=== PATIENT | female | born 1935 | race Caucasian/White ===

== ENCOUNTER 2016-06-05 08:08 | Inpatient (IN) ==
[2016-06-05] MEDS ORDERED: *HR* Dextrose 50 % in Water (Syg) 50 ML SYRINGE IVP PRN (13:30)
[2016-06-05] MEDS ORDERED: Dextrose Gel 15 GM PO PRN ×2 (13:30)
[2016-06-05] MEDS ORDERED: D5% in Water 1,000 ML IVC PRN (13:30)
[2016-06-05] MEDS ORDERED: NON-FORMULARY MEDICATION 1 EACH EACH (Insulin Glargine [Lantus] 20 UNITS) SQ SCH (16:30)
[2016-06-05] MEDS: Insulin LISPRO 300 UNITS/3 ML VIAL SQ SCH ×2 (16:53→20:42)
[2016-06-05] MEDS: *HR* Warfarin 2.5 MG TABLET PO SCH (16:59)
[2016-06-05] MEDS: Insulin DETEMIR 100 UNIT/ML X5UNITS SQ SCH (17:00)
[2016-06-06 05:50] LABS: Basophils % 0.4 %; Eosinophils # 0.1 K/mcL (0.0-0.6); Eosinophils % 1.9 %; Hematocrit 32.1 % (35.3-44.9); Hemoglobin 10.8 g/dL (11.5-15.4); INR 2.4; Immature Granulocytes % 0.4 % (0-4); Lymphocytes # 1.4 K/mcL (0.6-4.6); Lymphocytes % 26.7 %; Mean Corpuscular HGB Conc 33.6 g/dL (31.6-35.5); Mean Corpuscular Hemoglobin 28.3 pg (28.0-33.3); Mean Platelet Volume 9.9 fL (9.4-12.4); Monocytes # 0.7 K/mcL (0.0-1.3); Monocytes % 13.2 %; Neutrophils # 3.1 K/mcL (1.6-8.9); Platelet Count 328 K/mcL (140-400); Prothrombin Time 26.3 Seconds (9.4-12.1); Red Blood Count 3.82 M/mcL (3.82-4.97); Red Cell Distribution Width 13.8 % (11.5-14.5); Segmented Neutrophils % 57.4 %
[2016-06-06 05:53] LABS: Activated Partial Thrombo Time 29.8 Seconds (26.0-36.0)
[2016-06-06 06:01] LABS: BUN/Creatinine Ratio 23 (6-26); Blood Urea Nitrogen 18 mg/dL (7-20); Calcium 8.9 mg/dL (8.6-10.8); Carbon Dioxide 21 mEq/L (19-29); Chloride 107 mEq/L (98-109); Osmolality,Calculated 283 (280-300); Potassium 3.7 mEq/L (3.5-4.5); Sodium 137 mEq/L (136-145); eGFR For African Americans > 60 (> 60); eGFR For Non-African Americans > 60 (> 60)
[2016-06-06 06:05] LABS: Glucose 38 mg/dL (70-99)
[2016-06-06] MEDS: Insulin LISPRO 300 UNITS/3 ML VIAL SQ SCH ×4 (08:00→20:50)
[2016-06-06] MEDS: *HR* GlipiZIDE XL (24 HR) 10 MG TABLET PO SCH (10:11)
[2016-06-06] MEDS: Aspirin Enteric Coated 325 MG Tablet PO SCH (10:11)
[2016-06-06] MEDS: *HR* Warfarin 2.5 MG TABLET PO SCH (17:42)
[2016-06-06] MEDS: Insulin DETEMIR 100 UNIT/ML X5UNITS SQ SCH (17:48)
[2016-06-07 07:14] LABS: INR 2.2; Prothrombin Time 24.7 Seconds (9.4-12.1)
[2016-06-07] MEDS: Insulin LISPRO 300 UNITS/3 ML VIAL SQ SCH ×4 (08:20→20:30)
[2016-06-07] MEDS: *HR* GlipiZIDE XL (24 HR) 10 MG TABLET PO SCH (08:21)
[2016-06-07] MEDS: Aspirin Enteric Coated 325 MG Tablet PO SCH (08:21)
[2016-06-07] MEDS: Insulin DETEMIR 100 UNIT/ML X5UNITS SQ SCH (09:19)
--- NOTE | 2016-06-07 14:32 | Internal Med History&Physical ---
Date of Encounter: 06/07/16 Time of Encounter: 14:30 Assessment and Plan (1) CVA (cerebral vascular accident) Current visit: Yes Status: Acute CVA. Qualifiers: Laterality of affected vessel: unspecified Qualified Code(s): I63.019 - Cerebral infarction due to thrombosis of unspecified vertebral artery Internal Medicine - H&P: HPI Chief complaint: Patient had CVA Admitted From: Hospital to Hospital Transfer Plans for Post Hospital Care: Home History of present illness: Ms. Torres is a 81 year old female Patient is a somewhat confused 81-year-old female with an ischemic CVA. Past Med Surg Social Fam HX - Past Medical History Medical history: atrial fibrillation, CVA, diabetes, thyroid disease - Social History Smoking Status: Unknown if ever smoked - Family History Mother History Unknown: Yes Father History Unknown: Yes Internal Medicine - H&P: Meds Aspirin [Ecotrin] 325 mg PO DAILY 06/05/16 [History] Bisacodyl [Woman's Laxative] 5 mg PO DAILY 06/05/16 [History] Carvedilol [Coreg] 6.25 mg PO BIDWM 06/05/16 [History] GlipiZIDE [Glipizide] 10 mg PO DAILY 06/05/16 [History] Insulin Glargine [Lantus] 20 units SQ 1630 06/05/16 [History] Levothyroxine [Synthroid] 0.1 mg PO DAILY 06/05/16 [History] Pravastatin Sodium [Pravachol] 40 mg PO HS 06/05/16 [History] Warfarin [Coumadin] 2.5 mg PO DAILY 06/05/16 [History] Allergies pcn Allergy (Unknown, Uncoded 06/05/16 13:14) Rash All Systems PM: A 10-system review of systems was performed and is negative for pertinent findings except as documented above in the HPI. - Constitutional Vitals: Temp Pulse Resp BP Pulse Ox 98 F 76 18 167/62 94 06/07/16 08:04 06/07/16 08:04 06/07/16 08:04 06/07/16 08:04 06/07/16 08:04 - Head Head exam: Present: atraumatic, normal inspection, normocephalic - Neck Neck exam general surgery: Present: supple, trachea midline. Absent: lymphadenopathy - Respiratory Respiratory exam: Present: CTAB. Absent: accessory muscle use, rales, rhonchi, wheezes - Cardiovascular Cardiovascular exam: Present: RRR, +S1, +S2. Absent: diastolic murmur, gallop, rubs, systolic murmur - GI/Abdominal GI/Abdominal exam: Present: normal bowel sounds, soft, no peritoneal signs. Absent: distended, tenderness Internal Med - H&P Results - Labs CBC & Chem 7: 06/06/16 05:43 06/06/16 05:43 Labs: Blood sugar was noted and responded to by the nursing staff.
[2016-06-07] MEDS: *HR* Warfarin 2.5 MG TABLET PO SCH (17:40)
[2016-06-08 00:45] LABS: Bilirubin,Urine Negative (Negative); Blood,Urine Trace-intact (Negative); Clarity,Urine Clear (Clear); Color,Urine Yellow (Yellow); Glucose,Urine (UA) Normal (Normal); Ketones,Urine Negative (Negative); Leukocyte Esterase,Urine Negative (Negative); Nitrite,Urine Negative (Negative); PH,Urine 6.5 pH Units (5.0-8.0); Protein,Urine Negative (Neg-Trace); Urobilinogen,Urine Normal (Normal)
[2016-06-08 00:47] LABS: Amorphous Sediment,Urine Few (Few); RBC,Urine 0-3 per hpf (0-3)
[2016-06-08 05:33] LABS: INR 1.8; Prothrombin Time 20.2 Seconds (9.4-12.1)
[2016-06-08] MEDS: Insulin LISPRO 300 UNITS/3 ML VIAL SQ SCH ×4 (08:02→20:48)
[2016-06-08] MEDS: Aspirin Enteric Coated 325 MG Tablet PO SCH (09:31)
[2016-06-08] MEDS: Insulin DETEMIR 100 UNIT/ML X5UNITS SQ SCH (09:31)
[2016-06-08] MEDS: *HR* GlipiZIDE XL (24 HR) 10 MG TABLET PO SCH (09:31)
--- NOTE | 2016-06-08 15:41 | Internal Med Progress Note ---
Date of Encounter: 06/08/16 Time of Encounter: 15:39 - Assessment and plan (1) CVA (cerebral vascular accident) Current Visit: Yes Status: Acute Assessment and plan: She had a CVA of ischemic nature and is participating all levels of care with PT OT when necessary speech Qualifiers: Laterality of affected vessel: unspecified Qualified Code(s): I63.019 - Cerebral infarction due to thrombosis of unspecified vertebral artery - Time Spent With Patient less than 15 minutes - Subjective Interval history: Patient is doing well working with therapy. Resting and participating on all levels - Constitutional Vitals: Temp Pulse Resp BP Pulse Ox 98.8 F 88 18 85/60 99 06/08/16 07:00 06/08/16 07:00 06/08/16 07:00 06/08/16 07:00 06/08/16 07:00 - Head Head exam: Present: atraumatic, normal inspection, normocephalic - Respiratory Respiratory exam: Present: CTAB. Absent: accessory muscle use, rales, rhonchi, wheezes - Cardiovascular Cardiovascular exam: Present: RRR, +S1, +S2. Absent: diastolic murmur, gallop, rubs, systolic murmur Internal Medicine: Result - Labs CBC & Chem 7: 06/06/16 05:43 06/06/16 05:43 Labs: Urine 06/07/16 Range/Units 23:41 Urine Color Yellow (Yellow) Urine Clarity Clear (Clear) Urine pH 6.5 (5.0-8.0) pH Units Ur Specific [place] 1.010 (1.010-1.025) Urine Protein Negative (Neg-Trace) mg/dL Urine Glucose (UA) Normal (Normal) mg/dL Lab is stable - ABG Interpretation ABG results: PT/INR, D-dimer PT 20.2 Seconds (9.4-12.1) H 06/08/16 05:20 Consult Discharge Plan - Plan Referrals: NO,PCP [Primary Care Provider] -
[2016-06-08] MEDS: *HR* Warfarin 3 MG TABLET PO SCH (17:43)
[2016-06-09 05:23] LABS: INR 1.5; Prothrombin Time 16.6 Seconds (9.4-12.1)
[2016-06-09] MEDS: Insulin LISPRO 300 UNITS/3 ML VIAL SQ SCH ×3 (08:06→17:18)
[2016-06-09] MEDS: Aspirin Enteric Coated 325 MG Tablet PO SCH (09:19)
[2016-06-09] MEDS: *HR* GlipiZIDE XL (24 HR) 10 MG TABLET PO SCH (09:19)
--- NOTE | 2016-06-09 14:46 | Internal Med Progress Note ---
Date of Encounter: 06/09/16 Time of Encounter: 14:44 - Assessment and plan (1) CVA (cerebral vascular accident) Current Visit: Yes Status: Acute Assessment and plan: Patient had a CVA with think there are some cognitive changes. Qualifiers: Laterality of affected vessel: unspecified Qualified Code(s): I63.419 - Cerebral infarction due to embolism of unspecified middle cerebral artery - Time Spent With Patient less than 15 minutes - Subjective Interval history: Patient is doing well working with therapy. Resting and participating on all levels. The staff we discussed her progress and there are some cognitive issues. Physically and orally the patient is doing well. - Constitutional Vitals: Temp Pulse Resp BP Pulse Ox 98.2 F 81 18 129/67 97 06/09/16 07:06 06/09/16 07:06 06/09/16 07:06 06/09/16 07:06 06/09/16 07:06 - Head Head exam: Present: atraumatic, normal inspection, normocephalic - Neck Neck exam general surgery: Present: supple, trachea midline. Absent: lymphadenopathy - Respiratory Respiratory exam: Present: CTAB. Absent: accessory muscle use, rales, rhonchi, wheezes - Cardiovascular Cardiovascular exam: Present: RRR, +S1, +S2. Absent: diastolic murmur, gallop, rubs, systolic murmur Internal Medicine: Result - Labs CBC & Chem 7: 06/06/16 05:43 06/06/16 05:43 Labs: Her lab is stable - ABG Interpretation ABG results: PT/INR, D-dimer PT 16.6 Seconds (9.4-12.1) H 06/09/16 04:50 - VTE Documentation of Mechanical Device: Graduated compression elastic hosiery Consult Discharge Plan - Plan Referrals: NO,PCP [Primary Care Provider] -
[2016-06-09] MEDS: Insulin DETEMIR 100 UNIT/ML X5UNITS SQ SCH (15:36)
--- NOTE | 2016-06-09 15:54 | Physcial Medicine-Consult Note ---
Date of Encounter: 06/09/16 Time of Encounter: 15:50 Physical Medicine - AP (1) CVA (cerebral vascular accident) Status: Acute Assessment and plan: 1. Patient will continue with intensive PT/OT/ST/TR. Patient is currently SBA for gait, she ambulates quickly. Requires cues to scan environment. Her endurance is poor. Her cognitive deficits are her primary barrier. We will continue to focus on safety, cognition and ADLs. EOL 4 weeks. Code(s): I63.9 - Cerebral infarction, unspecified SNOMED Code(s): 114958298 Physical Medicine - HPI - Data of Consult Consult date: 06/09/16 Requesting Physician: Luiz Lomeli DO Primary Care Provider: PCP NO - Consult Narrative Reason for consult: CVA History of present illness: Ms. Torres is a 81 year old female with a past medical history significant for afib, diabetes, hypertension, and congestive heart failure, who presented to [facility] with complaints of mental status changes, dysarthria , expressive aphasia and right sided weakness. MRI of brain revealed an acute infarct in the left posterior frontal/parietal lobe, previous infarcts in the right parietal/occipital and left occipital lobes. Patient was stabilized and transferred for inpatient rehabilitation. CC: Luiz Lomeli DO Past Med Surg Social Fam HX - Past Medical History Medical history: atrial fibrillation, CVA, diabetes, thyroid disease - Social History Smoking Status: Unknown if ever smoked - Family History Mother History Unknown: Yes Father History Unknown: Yes Medications and Allergies Aspirin [Ecotrin] 325 mg PO DAILY 06/05/16 [History] Bisacodyl [Woman's Laxative] 5 mg PO DAILY 06/05/16 [History] Carvedilol [Coreg] 6.25 mg PO BIDWM 06/05/16 [History] GlipiZIDE [Glipizide] 10 mg PO DAILY 06/05/16 [History] Insulin Glargine [Lantus] 20 units SQ 1630 06/05/16 [History] Levothyroxine [Synthroid] 0.1 mg PO DAILY 06/05/16 [History] Pravastatin Sodium [Pravachol] 40 mg PO HS 06/05/16 [History] Warfarin [Coumadin] 2.5 mg PO DAILY 06/05/16 [History] Allergies pcn Allergy (Unknown, Uncoded 06/05/16 13:14) Rash - Constitutional Constitutional: Absent: anorexia, chills - Cardiovascular Cardiovascular: Absent: chest pain, dyspnea - Respiratory Respiratory: Absent: dyspnea - Genitourinary Genitourinary: Absent: urinary incontinence - Neurological Neurological: Present: memory loss - Psychiatric Psychiatric: Present: confusion. Absent: auditory hallucinations, visual hallucinations Physical Medicine - Exam - Constitutional Vitals: Temp Pulse Resp BP Pulse Ox 98.2 F 81 18 129/67 97 06/09/16 07:06 06/09/16 07:06 06/09/16 07:06 06/09/16 07:06 06/09/16 07:06 Exam: Patient is alert, follows 1 step commands. She is not oriented to person or place. Able to perform simple naming of items. - Head Additional comments: Left facial droop, EOMI intact, no diplopia, no blurred vision. - Respiratory Respiratory exam: Present: CTAB - Cardiovascular Cardiovascular exam: Present: irregular rhythm - GI/Abdominal GI/Abdominal exam: Present: normal bowel sounds, soft. Absent: tenderness - Extremities Exam Extremities exam: Absent: calf tenderness, normal inspection Additional comments: Motor strength is 5/5 in the bilateral upper and lower limbs. Physical Medicine - Results - Labs CBC & Chem 7: 06/06/16 05:43 06/06/16 05:43 Consult Discharge Plan - Plan Referrals: NO,PCP [Primary Care Provider] -
--- NOTE | 2016-06-09 16:25 | Psychological Evaluation ---
Date of Encounter: 06/09/16 Time of Encounter: 10:30 History of Present Illness History of present illness: Ms. Torres is a 81 year old female admitted to [facility] for inpatient rehabilitation following an ischemic stroke. She was seen on this date to assess her current cognitive and emotional functioning. Past Medical History Medical history: Significant for atrial fibrillation, diabetes and thyroid disease. - Psychiatric History Psychiatric history: Reports: no psych history (In addition, there is no family history of psychiatric or mental health conditions.) Home Medications and Allergies Aspirin [Ecotrin] 325 mg PO DAILY 06/05/16 [History] Bisacodyl [Woman's Laxative] 5 mg PO DAILY 06/05/16 [History] Carvedilol [Coreg] 6.25 mg PO BIDWM 06/05/16 [History] GlipiZIDE [Glipizide] 10 mg PO DAILY 06/05/16 [History] Insulin Glargine [Lantus] 20 units SQ 1630 06/05/16 [History] Levothyroxine [Synthroid] 0.1 mg PO DAILY 06/05/16 [History] Pravastatin Sodium [Pravachol] 40 mg PO HS 06/05/16 [History] Warfarin [Coumadin] 2.5 mg PO DAILY 06/05/16 [History] Allergies pcn Allergy (Unknown, Uncoded 06/05/16 13:14) Rash Social History - Social History Social History: Ms. Torres lives alone and is a . She was unable to say when her ("couple 3 years ago"). She has 3 children (one daughter and 2 sons ). She reported being close to her children and described them as her main social support network. Her children do not live far and come over often to check on her. 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 She stated that she did not drive but was fairly independent at home. She used to enjoy bowling. - Tobacco Use Smoking Status: Unknown if ever smoked - Alcohol Use Alcohol Use: none Cognitive/Emotional Assessment - Cognitive Ability Additional Findings: Ms. Torres was alert, attentive and partially oriented. She knew her name and date but could not provide her age (81). She knew the month but not the day or year. She did know that she was in a hospital in [place]. She was unable to name the current [place] President or the previous president. She was unable to do simple mental arithmetic ("I can see it, but I can't get it"). Her score on a measure of attention/concentration fell within the moderate to severely impaired range. She had difficulty with sentence repetition (severely impaired), verbal abstract reasoning (severely impaired) and delayed verbal recall (moderately impaired). Her performance was moderately assisted with recognition, multiple choice cueing. She performed adequately on a measure of auditory comprehension and social judgment. Ms. Torres was noted to have difficulty completing her thoughts and finding her words. Speech was coherent and goal-directed. - Emotional Status Additional Findings: Ms. Torres was pleasant, friendly and cooperative. She acknowledged feeling some frustration but reported her mood was "good". Level of awareness appeared limited. She reported that she feels she may have "slowed down a little " post-stroke but did not appear aware of some of her deficits. There were no signs of agitation, irritability, sadness or anger. 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 Torres is exhibiting impairments in delayed recall/new learning, attention , sentence repetition and abstract reasoning. She will benefit from having information repeated and provided in multiple formats (eg. verbal, written, visual). Level of insight appears limited but she presented as motivated for rehab. Will follow to provide education regarding recovery from stroke and to provide emotional adjustment counseling if needed. Procedures - Session Time Session Start Time: 10:30 Session Stop Time: 11:00
[2016-06-09] MEDS: *HR* Warfarin 3 MG TABLET PO SCH (18:26)
[2016-06-10] MEDS: Insulin LISPRO 300 UNITS/3 ML VIAL SQ SCH ×5 (01:15→21:12)
[2016-06-10 07:24] LABS: INR 1.4; Prothrombin Time 15.1 Seconds (9.4-12.1)
[2016-06-10] MEDS: *HR* GlipiZIDE XL (24 HR) 10 MG TABLET PO SCH (10:08)
[2016-06-10] MEDS: Aspirin Enteric Coated 325 MG Tablet PO SCH (10:08)
[2016-06-10] MEDS: Insulin DETEMIR 100 UNIT/ML X5UNITS SQ SCH (14:02)
--- NOTE | 2016-06-10 14:23 | Internal Med Progress Note ---
Date of Encounter: 06/10/16 Time of Encounter: 14:22 - Assessment and plan (1) CVA (cerebral vascular accident) Current Visit: Yes Status: Acute Assessment and plan: CVA Qualifiers: Laterality of affected vessel: unspecified Qualified Code(s): I63.419 - Cerebral infarction due to embolism of unspecified middle cerebral artery - Time Spent With Patient less than 15 minutes - Subjective Interval history: Continuing to work with therapist - Constitutional Vitals: Temp Pulse Resp BP Pulse Ox 97.5 F L 77 18 140/79 94 06/10/16 07:05 06/10/16 07:05 06/10/16 07:05 06/10/16 07:05 06/10/16 07:05 - Head Head exam: Present: atraumatic, normal inspection, normocephalic - Neck Neck exam general surgery: Present: supple, trachea midline. Absent: lymphadenopathy - Respiratory Respiratory exam: Present: CTAB. Absent: accessory muscle use, rales, rhonchi, wheezes - Cardiovascular Cardiovascular exam: Present: RRR, +S1, +S2. Absent: diastolic murmur, gallop, rubs, systolic murmur Internal Medicine: Result - Labs CBC & Chem 7: 06/06/16 05:43 06/06/16 05:43 Labs: Stable - ABG Interpretation ABG results: PT/INR, D-dimer PT 15.1 Seconds (9.4-12.1) H 06/10/16 06:30 - VTE Documentation of Mechanical Device: Graduated compression elastic hosiery Consult Discharge Plan - Plan Referrals: NO,PCP [Primary Care Provider] -
[2016-06-10] MEDS: *HR* Warfarin 3 MG TABLET PO SCH (18:42)
[2016-06-10] MEDS ORDERED: *HR* Warfarin 2 MG TABLET PO ONE (19:30)
[2016-06-11 05:51] LABS: INR 1.3; Prothrombin Time 13.6 Seconds (9.4-12.1)
[2016-06-11] MEDS: Insulin LISPRO 300 UNITS/3 ML VIAL SQ SCH ×4 (07:21→21:38)
[2016-06-11] MEDS: Aspirin Enteric Coated 325 MG Tablet PO SCH (08:32)
[2016-06-11] MEDS: *HR* GlipiZIDE XL (24 HR) 10 MG TABLET PO SCH (08:33)
[2016-06-11] MEDS: Insulin DETEMIR 100 UNIT/ML X5UNITS SQ SCH (08:39)
[2016-06-11] MEDS: *HR* Enoxaparin 60 MG/0.6 ML SYRINGE SQ SCH ×2 (12:12→23:54)
--- NOTE | 2016-06-11 14:15 | Internal Med Progress Note ---
Date of Encounter: 06/11/16 Time of Encounter: 14:13 - Assessment and plan (1) CVA (cerebral vascular accident) Current Visit: Yes Status: Acute Qualifiers: Laterality of affected vessel: unspecified Qualified Code(s): I63.419 - Cerebral infarction due to embolism of unspecified middle cerebral artery - Time Spent With Patient less than 15 minutes - Subjective Interval history: Continuing to work with therapist needed to [place] her INR because she is not therapeutic so and Lovenox. - Constitutional Vitals: Temp Pulse Resp BP Pulse Ox 97.9 F 75 18 166/77 97 06/11/16 06:50 06/11/16 06:50 06/11/16 06:50 06/11/16 06:50 06/11/16 06:50 - Head Head exam: Present: atraumatic, normal inspection, normocephalic - Neck Neck exam general surgery: Present: supple, trachea midline. Absent: lymphadenopathy - Respiratory Respiratory exam: Present: CTAB. Absent: accessory muscle use, rales, rhonchi, wheezes - Cardiovascular Cardiovascular exam: Present: RRR, +S1, +S2. Absent: diastolic murmur, gallop, rubs, systolic murmur Internal Medicine: Result - Labs CBC & Chem 7: 06/06/16 05:43 06/06/16 05:43 Labs: Lab is okay - ABG Interpretation ABG results: PT/INR, D-dimer PT 13.6 Seconds (9.4-12.1) H 06/11/16 05:40 - VTE Documentation of Mechanical Device: Graduated compression elastic hosiery Consult Discharge Plan - Plan Referrals: NO,PCP [Primary Care Provider] -
[2016-06-11] MEDS ORDERED: *HR* Warfarin 5 MG TABLET PO ONE (18:00)
[2016-06-11] MEDS ORDERED: Warfarin perPT PO PRN (18:00)
[2016-06-11 23:25] LABS: Bilirubin,Urine Negative (Negative); Blood,Urine Negative (Negative); Clarity,Urine Clear (Clear); Color,Urine Yellow (Yellow); Glucose,Urine (UA) Normal (Normal); Ketones,Urine Negative (Negative); Leukocyte Esterase,Urine Trace (Negative); Nitrite,Urine Negative (Negative); PH,Urine 5.5 pH Units (5.0-8.0); Protein,Urine Negative (Neg-Trace); Specific Gravity,Urine <= 1.005 (1.010-1.025); Urobilinogen,Urine Normal (Normal)
[2016-06-11 23:36] LABS: Bacteria,Urine Few per hpf (None-Few); RBC,Urine 0-3 per hpf (0-3); Squamous Epithelial Cell,Urine Few per lpf (None-Few); WBC,Urine 0-3 per hpf (0-3)
[2016-06-12 05:11] LABS: INR 1.4; Prothrombin Time 15.3 Seconds (9.4-12.1)
[2016-06-12] MEDS ORDERED: *HR* Enoxaparin 30 MG/0.3 ML SYRINGE SQ SCH (06:00)
[2016-06-12] MEDS: *HR* GlipiZIDE XL (24 HR) 10 MG TABLET PO SCH (08:04)
[2016-06-12] MEDS: Aspirin Enteric Coated 325 MG Tablet PO SCH (08:04)
[2016-06-12] MEDS: Insulin LISPRO 300 UNITS/3 ML VIAL SQ SCH ×4 (08:04→21:20)
[2016-06-12] MEDS: Insulin DETEMIR 100 UNIT/ML X5UNITS SQ SCH (08:05)
--- NOTE | 2016-06-12 09:11 | Internal Med Progress Note ---
Date of Encounter: 06/12/16 Time of Encounter: 09:09 - Assessment and plan (1) CVA (cerebral vascular accident) Current Visit: Yes Status: Acute Assessment and plan: Patient will continue with intensive PT/OT/ST/TR. Patient is currently SBA for gait, she ambulates quickly. Requires cues to scan environment. Her endurance is poor. Her cognitive deficits are her primary barrier. We will continue to focus on safety, cognition and ADLs. CVA Qualifiers: Laterality of affected vessel: unspecified Qualified Code(s): I63.419 - Cerebral infarction due to embolism of unspecified middle cerebral artery (2) Atrial fibrillation Current Visit: Yes Status: Chronic Qualifiers: Atrial fibrillation type: chronic Qualified Code(s): I48.2 - Chronic atrial fibrillation - Time Spent With Patient less than 15 minutes - Subjective Interval history: No new voiced complaint. Same right-sided weakness. No shortness of breath. No chest pain. No headache. - Constitutional Vitals: Temp Pulse Resp BP Pulse Ox 97.9 F 78 14 133/71 94 06/12/16 06:53 06/12/16 06:53 06/12/16 06:53 06/12/16 06:53 06/12/16 06:53 General appearance: Present: A&O X 3, pleasant, no acute distress - Respiratory Respiratory exam: Present: CTAB. Absent: accessory muscle use, rales, rhonchi, wheezes - Cardiovascular Cardiovascular exam: Present: irregular rhythm. Absent: rubs - Extremities Exam Extremities exam: Present: warm, radial pulses palpable and symetrical. Absent : calf tenderness, cyanotic, pedal edema - Neurological Exam Additional comments: 6 same right-sided weakness. Some balance issue. Internal Medicine: Result - Labs CBC & Chem 7: 06/06/16 05:43 06/06/16 05:43 Labs: Urine 06/11/16 Range/Units 23:20 Urine Color Yellow (Yellow) Urine Clarity Clear (Clear) Urine pH 5.5 (5.0-8.0) pH Units Ur Specific [place] <= 1.005 L (1.010-1.025) Urine Protein Negative (Neg-Trace) mg/dL Urine Glucose (UA) Normal (Normal) mg/dL - ABG Interpretation ABG results: PT/INR, D-dimer PT 15.3 Seconds (9.4-12.1) H 04/22/17 05:00 - VTE Documentation of Mechanical Device: Graduated compression elastic hosiery Consult Discharge Plan - Plan Referrals: NO,PCP [Primary Care Provider] -
[2016-06-12] MEDS: *HR* Enoxaparin 60 MG/0.6 ML SYRINGE SQ SCH ×2 (11:55→23:29)
[2016-06-12] MEDS ORDERED: *HR* Warfarin 5 MG TABLET PO ONE (18:00)
[2016-06-13 05:01] LABS: INR 1.5; Prothrombin Time 15.9 Seconds (9.4-12.1)
[2016-06-13] MEDS: *HR* GlipiZIDE XL (24 HR) 10 MG TABLET PO SCH (07:58)
[2016-06-13] MEDS: Insulin LISPRO 300 UNITS/3 ML VIAL SQ SCH ×4 (07:59→20:36)
[2016-06-13] MEDS: Aspirin Enteric Coated 325 MG Tablet PO SCH (07:59)
[2016-06-13] MEDS: Insulin DETEMIR 100 UNIT/ML X5UNITS SQ SCH (08:00)
--- NOTE | 2016-06-13 10:24 | Internal Med Progress Note ---
Date of Encounter: 06/13/16 Time of Encounter: 10:22 - Assessment and plan (1) CVA (cerebral vascular accident) Current Visit: Yes Status: Acute Assessment and plan: Patient's here for CVA. There are cognitive issues that will be residual Qualifiers: Laterality of affected vessel: unspecified Qualified Code(s): I63.419 - Cerebral infarction due to embolism of unspecified middle cerebral artery - Time Spent With Patient less than 15 minutes - Subjective Interval history: Continuing to work with therapist needed to manage Coumadin care with Lovenox because it was subtherapeutic. Overall patient is doing well and has no complaints - Constitutional Vitals: Temp Pulse Resp BP Pulse Ox 97.8 F 81 16 139/73 96 06/13/16 07:09 06/13/16 07:09 06/13/16 07:09 06/13/16 07:09 06/13/16 07:09 General appearance: Present: A&O X 3, pleasant, no acute distress - Head Head exam: Present: atraumatic, normal inspection, normocephalic - Neck Neck exam general surgery: Present: supple, trachea midline. Absent: lymphadenopathy - Respiratory Respiratory exam: Present: CTAB. Absent: accessory muscle use, rales, rhonchi, wheezes - Cardiovascular Cardiovascular exam: Present: RRR, +S1, +S2. Absent: diastolic murmur, gallop, rubs, systolic murmur - GI/Abdominal GI/Abdominal exam: Present: normal bowel sounds, soft, no peritoneal signs. Absent: distended, tenderness Internal Medicine: Result - Labs CBC & Chem 7: 06/06/16 05:43 06/06/16 05:43 Labs: Lab is improving INR is - ABG Interpretation ABG results: PT/INR, D-dimer PT 15.9 Seconds (9.4-12.1) H 06/13/16 04:50 - VTE Documentation of Mechanical Device: Graduated compression elastic hosiery Consult Discharge Plan - Plan Referrals: NO,PCP [Primary Care Provider] -
[2016-06-13] MEDS: *HR* Enoxaparin 60 MG/0.6 ML SYRINGE SQ SCH ×2 (12:11→23:14)
[2016-06-13] MEDS ORDERED: *HR* Warfarin 7.5 MG TABLET PO ONE (18:00)
[2016-06-14 06:18] LABS: Basophils % 0.2 %; Eosinophils # 0.1 K/mcL (0.0-0.6); Eosinophils % 2.1 %; Hematocrit 31.5 % (35.3-44.9); Hemoglobin 10.6 g/dL (11.5-15.4); INR 1.6; Immature Granulocytes % 0.2 % (0-4); Lymphocytes # 1.5 K/mcL (0.6-4.6); Lymphocytes % 30.9 %; Mean Corpuscular HGB Conc 33.7 g/dL (31.6-35.5); Mean Corpuscular Hemoglobin 28.5 pg (28.0-33.3); Mean Corpuscular Volume 84.7 fL (83.0-100.0); Mean Platelet Volume 9.3 fL (9.4-12.4); Monocytes # 0.6 K/mcL (0.0-1.3); Monocytes % 12.2 %; Neutrophils # 2.6 K/mcL (1.6-8.9); Platelet Count 292 K/mcL (140-400); Prothrombin Time 17.1 Seconds (9.4-12.1); Red Blood Count 3.72 M/mcL (3.82-4.97); Red Cell Distribution Width 13.7 % (11.5-14.5); Segmented Neutrophils % 54.4 %
[2016-06-14 06:27] LABS: BUN/Creatinine Ratio 23 (6-26); Blood Urea Nitrogen 20 mg/dL (7-20); Carbon Dioxide 21 mEq/L (19-29); Chloride 107 mEq/L (98-109); Glucose 81 mg/dL (70-99); Osmolality,Calculated 286 (280-300); Potassium 4.4 mEq/L (3.5-4.5); Sodium 137 mEq/L (136-145); eGFR For African Americans > 60 (> 60); eGFR For Non-African Americans > 60 (> 60)
[2016-06-14] MEDS: *HR* GlipiZIDE XL (24 HR) 10 MG TABLET PO SCH (08:33)
[2016-06-14] MEDS: Aspirin Enteric Coated 325 MG Tablet PO SCH (08:33)
[2016-06-14] MEDS: Insulin LISPRO 300 UNITS/3 ML VIAL SQ SCH ×4 (08:34→20:44)
[2016-06-14] MEDS: Insulin DETEMIR 100 UNIT/ML X5UNITS SQ SCH (09:03)
[2016-06-14] MEDS: *HR* Enoxaparin 60 MG/0.6 ML SYRINGE SQ SCH ×2 (15:11→23:30)
--- NOTE | 2016-06-14 15:21 | Internal Med Progress Note ---
Date of Encounter: 06/14/16 Time of Encounter: 15:19 - Assessment and plan (1) CVA (cerebral vascular accident) Current Visit: Yes Status: Acute Assessment and plan: Patient had a CVA. Qualifiers: Laterality of affected vessel: unspecified Qualified Code(s): I63.419 - Cerebral infarction due to embolism of unspecified middle cerebral artery - Time Spent With Patient less than 15 minutes - Subjective Interval history: Continuing to work with therapist needed to manage Coumadin care with Lovenox because it was subtherapeutic. Overall patient is doing well and has no complaints. - Constitutional Vitals: Temp Pulse Resp BP Pulse Ox 98.6 F 95 16 138/67 95 06/14/16 06:32 06/14/16 06:32 06/14/16 06:32 06/14/16 06:32 06/14/16 06:32 General appearance: Present: A&O X 3, pleasant, no acute distress - Head Head exam: Present: atraumatic, normal inspection, normocephalic - Neck Neck exam general surgery: Present: supple, trachea midline. Absent: lymphadenopathy - Respiratory Respiratory exam: Present: CTAB. Absent: accessory muscle use, rales, rhonchi, wheezes - Cardiovascular Cardiovascular exam: Present: RRR, +S1, +S2. Absent: diastolic murmur, gallop, rubs, systolic murmur Internal Medicine: Result - Labs CBC & Chem 7: 06/14/16 06:00 06/14/16 06:00 Labs: Short CBC 06/14/16 Range/Units 06:00 WBC 4.8 (4.3-11.1) K/mcL Hgb 10.6 L (11.5-15.4) g/dL Hct 31.5 L (35.3-44.9) % Plt Count 292 (140-400) K/mcL Neutrophils # 2.6 (1.6-8.9) K/mcL BMP 06/14/16 06:00 Sodium 137 Potassium 4.4 Chloride 107 Carbon Dioxide 21 BUN 20 Creatinine 0.86 Glucose 81 Calcium 9.0 Lab is stable - ABG Interpretation ABG results: PT/INR, D-dimer PT 17.1 Seconds (9.4-12.1) H 06/14/16 06:00 - VTE Documentation of Mechanical Device: Graduated compression elastic hosiery Consult Discharge Plan - Plan Referrals: NO,PCP [Primary Care Provider] -
[2016-06-14] MEDS ORDERED: *HR* Warfarin 5 MG TABLET PO ONE (18:00)
[2016-06-15 05:28] LABS: INR 1.6; Prothrombin Time 17.8 Seconds (9.4-12.1)
[2016-06-15] MEDS: Aspirin Enteric Coated 325 MG Tablet PO SCH (07:47)
[2016-06-15] MEDS: *HR* GlipiZIDE XL (24 HR) 10 MG TABLET PO SCH (07:47)
[2016-06-15] MEDS: Insulin DETEMIR 100 UNIT/ML X5UNITS SQ SCH (07:48)
[2016-06-15] MEDS: Insulin LISPRO 300 UNITS/3 ML VIAL SQ SCH ×4 (07:48→20:26)
[2016-06-15] MEDS: *HR* Enoxaparin 60 MG/0.6 ML SYRINGE SQ SCH ×2 (12:51→17:28)
--- NOTE | 2016-06-15 13:10 | Internal Med Progress Note ---
Date of Encounter: 06/15/16 Time of Encounter: 13:08 - Assessment and plan (1) CVA (cerebral vascular accident) Current Visit: Yes Status: Acute Qualifiers: Laterality of affected vessel: unspecified Qualified Code(s): I63.419 - Cerebral infarction due to embolism of unspecified middle cerebral artery - Time Spent With Patient less than 15 minutes - Subjective Interval history: Patient's working with therapist. - Constitutional Vitals: Temp Pulse Resp BP Pulse Ox 97.8 F 82 16 136/77 94 06/15/16 07:00 06/15/16 07:00 06/15/16 07:00 06/15/16 07:00 06/15/16 07:00 General appearance: Present: A&O X 3, pleasant, no acute distress - Head Head exam: Present: atraumatic, normocephalic - Respiratory Respiratory exam: Present: CTAB. Absent: accessory muscle use, rales, rhonchi, wheezes - Cardiovascular Cardiovascular exam: Present: RRR, +S1, +S2. Absent: diastolic murmur, gallop, rubs, systolic murmur Internal Medicine: Result - Labs CBC & Chem 7: 06/14/16 06:00 06/14/16 06:00 Labs: Lab is stable - ABG Interpretation ABG results: PT/INR, D-dimer PT 17.8 Seconds (9.4-12.1) H 06/15/16 05:15 - VTE Documentation of Mechanical Device: Graduated compression elastic hosiery Consult Discharge Plan - Plan Referrals: NO,PCP [Primary Care Provider] -
[2016-06-15] MEDS ORDERED: *HR* Warfarin 7.5 MG TABLET PO ONE (18:00)
[2016-06-16 05:24] LABS: INR 1.7; Prothrombin Time 18.1 Seconds (9.4-12.1)
[2016-06-16] MEDS: *HR* Enoxaparin 60 MG/0.6 ML SYRINGE SQ SCH ×2 (06:08→20:04)
[2016-06-16] MEDS: Insulin LISPRO 300 UNITS/3 ML VIAL SQ SCH ×4 (08:32→22:29)
[2016-06-16] MEDS: *HR* GlipiZIDE XL (24 HR) 10 MG TABLET PO SCH (08:40)
[2016-06-16] MEDS: Aspirin Enteric Coated 325 MG Tablet PO SCH (08:40)
[2016-06-16] MEDS: Insulin DETEMIR 100 UNIT/ML X5UNITS SQ SCH (08:42)
--- NOTE | 2016-06-16 12:21 | Physical Med Progress Note ---
Date of Encounter: 06/16/16 Time of Encounter: 12:16 Assessment and Plan (1) CVA (cerebral vascular accident) Current Visit: Yes Status: Acute Qualifiers: Laterality of affected vessel: unspecified Qualified Code(s): I63.419 - Cerebral infarction due to embolism of unspecified middle cerebral artery Physical Medicine-PN: Subj Interval history: PMR PCC note Patient very fatigued today. She was max cues to initiate a shower. Patient ambulating well. She continues to ambulate with at a rapid pace. She is able to do high level balance activities. Patient unable to perform simple kitchen tasks. Patient naming objects with 40% accuracy. She is not oriented to date even with calendar. She requires mod cues to produce a complete sentence. Patient will need a family meeting to discuss discharge needs. Plan for discharge to home with 24 hour supervision on 06/25/16. - Constitutional Vitals: Vital Signs Temp Pulse Resp BP Pulse Ox 06/16/16 07:00 98.3 F 84 16 147/64 06/15/16 19:19 97.0 F L 70 16 147/78 97 Intake and Output 06/15/16 06/16/16 06/16/16 23:59 07:59 15:59 Intake Total 600 / 600 920 / 920 Balance 600 / 600 920 / 920 Intake: Oral 600 / 600 920 / 920 Other: Meal Breakfast Percent of Meal Consumed 100% Stool Size Moderate Stool Consistency soft Stool Color Brown # Voids 1 1 1 # Bowel Movements 1 Blood Glucose* 195 78 189 Physical Medicine-PN: Obj Data - Labs CBC & Chem 7: 06/14/16 06:00 06/14/16 06:00 Labs: Laboratory Results - last 24 hr 06/14/16 06/15/16 06/15/16 07:59 06:58 11:08 PT INR POC Glucose 92 H 69 154 H 06/15/16 06/15/16 06/16/16 16:23 20:02 05:15 PT 18.1 H INR 1.7 POC Glucose 104 H 195 H - ABG Interpretation ABG results: PT/INR, D-dimer PT 18.1 Seconds (9.4-12.1) H 06/16/16 05:15 - VTE Documentation of Mechanical Device: Graduated compression elastic hosiery Consult Discharge Plan - Plan Referrals: NO,PCP [Primary Care Provider] -
--- NOTE | 2016-06-16 13:51 | Internal Med Progress Note ---
Date of Encounter: 06/16/16 Time of Encounter: 13:50 - Assessment and plan (1) CVA (cerebral vascular accident) Current Visit: Yes Status: Acute Assessment and plan: CVA I think is been mainly cognitive at this point Qualifiers: Laterality of affected vessel: unspecified Qualified Code(s): I63.419 - Cerebral infarction due to embolism of unspecified middle cerebral artery - Time Spent With Patient less than 15 minutes - Subjective Interval history: Patient's working with therapist. Main problems really cognitive at this point. She is walking well she is pretty stable but she definitely needs 24- hour care. - Constitutional Vitals: Temp Pulse Resp BP Pulse Ox 98.3 F 84 16 147/64 97 06/16/16 07:00 06/16/16 07:00 06/16/16 07:00 06/16/16 07:00 06/15/16 19:19 General appearance: Present: A&O X 3, pleasant, no acute distress - Head Head exam: Present: atraumatic, normal inspection, normocephalic - Neck Neck exam general surgery: Present: supple, trachea midline. Absent: lymphadenopathy - Respiratory Respiratory exam: Present: CTAB. Absent: accessory muscle use, rales, rhonchi, wheezes - Cardiovascular Cardiovascular exam: Present: RRR, +S1, +S2. Absent: diastolic murmur, gallop, rubs, systolic murmur Internal Medicine: Result - Labs CBC & Chem 7: 06/14/16 06:00 06/14/16 06:00 Labs: Labs stable - ABG Interpretation ABG results: PT/INR, D-dimer PT 18.1 Seconds (9.4-12.1) H 06/16/16 05:15 - VTE Documentation of Mechanical Device: Graduated compression elastic hosiery Consult Discharge Plan - Plan Referrals: NO,PCP [Primary Care Provider] -
[2016-06-16] MEDS ORDERED: *HR* Warfarin 7.5 MG TABLET PO ONE (18:00)
[2016-06-17 05:14] LABS: INR 1.8; Prothrombin Time 19.9 Seconds (9.4-12.1)
[2016-06-17] MEDS: Insulin LISPRO 300 UNITS/3 ML VIAL SQ SCH ×4 (08:09→21:44)
[2016-06-17] MEDS: *HR* Enoxaparin 60 MG/0.6 ML SYRINGE SQ SCH ×2 (08:22→17:39)
[2016-06-17] MEDS: Aspirin Enteric Coated 325 MG Tablet PO SCH (08:22)
[2016-06-17] MEDS: *HR* GlipiZIDE XL (24 HR) 10 MG TABLET PO SCH (08:22)
--- NOTE | 2016-06-17 11:21 | Internal Med Progress Note ---
Date of Encounter: 06/17/16 Time of Encounter: 11:19 - Assessment and plan (1) CVA (cerebral vascular accident) Current Visit: Yes Status: Acute Assessment and plan: Patient's here for therapy for CVA. Physically she is doing fine issues mainly cognitive Qualifiers: Laterality of affected vessel: unspecified Qualified Code(s): I63.419 - Cerebral infarction due to embolism of unspecified middle cerebral artery - Time Spent With Patient less than 15 minutes - Subjective Interval history: They terminated, therapy a little early today because she said she was dizzy. I had nursing check orthostatics and they were negative. Blood pressure was firm - Constitutional Vitals: Temp Pulse Resp BP Pulse Ox 98.2 F 83 18 144/84 92 06/17/16 07:30 06/17/16 07:30 06/17/16 07:30 06/17/16 07:30 06/17/16 07:30 General appearance: Present: A&O X 3, pleasant, no acute distress - Head Head exam: Present: atraumatic, normal inspection, normocephalic - Neck Neck exam general surgery: Present: supple, trachea midline. Absent: lymphadenopathy - Respiratory Respiratory exam: Present: CTAB. Absent: accessory muscle use, rales, rhonchi, wheezes - Cardiovascular Cardiovascular exam: Present: RRR, +S1, +S2. Absent: diastolic murmur, gallop, rubs, systolic murmur Internal Medicine: Result - Labs CBC & Chem 7: 06/14/16 06:00 06/14/16 06:00 Labs: Labs look stable - ABG Interpretation ABG results: PT/INR, D-dimer PT 19.9 Seconds (9.4-12.1) H 06/17/16 05:02 - VTE Documentation of Mechanical Device: Graduated compression elastic hosiery Consult Discharge Plan - Plan Referrals: NO,PCP [Primary Care Provider] -
[2016-06-17] MEDS: Insulin DETEMIR 100 UNIT/ML X5UNITS SQ SCH (12:03)
[2016-06-17] MEDS ORDERED: *HR* Warfarin 5 MG TABLET PO ONE (18:00)
[2016-06-18 05:47] LABS: INR 2.3; Prothrombin Time 25.3 Seconds (9.4-12.1)
[2016-06-18] MEDS: *HR* Enoxaparin 60 MG/0.6 ML SYRINGE SQ SCH ×2 (06:01→17:54)
[2016-06-18] MEDS: *HR* GlipiZIDE XL (24 HR) 10 MG TABLET PO SCH (08:05)
[2016-06-18] MEDS: Insulin DETEMIR 100 UNIT/ML X5UNITS SQ SCH (08:05)
[2016-06-18] MEDS: Aspirin Enteric Coated 325 MG Tablet PO SCH (08:06)
[2016-06-18] MEDS: Insulin LISPRO 300 UNITS/3 ML VIAL SQ SCH ×4 (08:06→21:03)
--- NOTE | 2016-06-18 13:50 | Internal Med Progress Note ---
Date of Encounter: 06/18/16 Time of Encounter: 13:48 - Assessment and plan (1) CVA (cerebral vascular accident) Current Visit: Yes Status: Acute Assessment and plan: Patient is not CVA which brought her to rehabilitation Qualifiers: Laterality of affected vessel: unspecified Qualified Code(s): I63.419 - Cerebral infarction due to embolism of unspecified middle cerebral artery - Time Spent With Patient less than 15 minutes - Subjective Interval history: They terminated, therapy a little early today because she said she was dizzy. I had nursing check orthostatics and they were negative. Blood pressure was firm. I am checking a UA since women of her age with a UTi can have changes - Constitutional Vitals: Temp Pulse Resp BP Pulse Ox 98.5 F 97 18 173/82 94 06/18/16 07:31 06/18/16 13:22 06/18/16 07:31 06/18/16 13:22 06/18/16 13:22 General appearance: Present: A&O X 3, pleasant, no acute distress - Head Head exam: Present: atraumatic, normocephalic - Respiratory Respiratory exam: Present: CTAB. Absent: accessory muscle use, rales, rhonchi, wheezes - Cardiovascular Cardiovascular exam: Present: RRR, +S1, +S2. Absent: diastolic murmur, gallop, rubs, systolic murmur Internal Medicine: Result - Labs CBC & Chem 7: 06/14/16 06:00 06/14/16 06:00 Labs: Lab is stable - ABG Interpretation ABG results: PT/INR, D-dimer PT 25.3 Seconds (9.4-12.1) H 06/18/16 05:00 - Impressions Impressions Head CT 06/17/16 17:46 IMPRESSION: No acute intracranial abnormality. Patchy areas of encephalomalacia in the bilateral parietal lobes, and mildly in the posterior right frontal lobe and bilateral occipital lobes, likely related to old infarctions. Tiny old infarctions in the left cerebellar hemisphere. Mild parenchymal volume loss. Moderate chronic microvascular disease. D/ / Rico Hernandez MD / Rico Hernandez MD Interpreting Provider: Rico Hernandez MD - VTE Documentation of Mechanical Device: Graduated compression elastic hosiery Consult Discharge Plan - Plan Referrals: NO,PCP [Primary Care Provider] -
[2016-06-18] MEDS ORDERED: Albuterol Neb 1.25 MG/3 ML VIAL ONE (15:34)
[2016-06-18] MEDS ORDERED: *HR* Warfarin 5 MG TABLET PO ONE (18:00)
[2016-06-18 20:15] VITALS: BP 202/76
[2016-06-18] MEDS ORDERED: Furosemide 40 MG/4 ML VIAL IVP ONE (20:28)
[2016-06-18] MEDS ORDERED: Nitroglycerin 1 INCH/GM PACKET TP ONE (20:29)
[2016-06-18 20:33] LABS: Bilirubin,Urine Negative (Negative); Blood,Urine Trace-lysed (Negative); Clarity,Urine Slightly Cloudy (Clear); Glucose,Urine (UA) >=1000 mg/dL (Normal); Ketones,Urine Negative (Negative); Leukocyte Esterase,Urine Negative (Negative); Nitrite,Urine Negative (Negative); Protein,Urine 100 mg/dL (Neg-Trace); Specific Gravity,Urine 1.015 (1.010-1.025); Urobilinogen,Urine Normal (Normal)
[2016-06-18 20:34] LABS: Amorphous Sediment,Urine Few (Few); Color,Urine Light Yellow (Yellow); RBC,Urine 0-3 per hpf (0-3)
[2016-06-18 21:05] LABS: Basophils % 0.1 %; Hematocrit 32.9 % (35.3-44.9); Hemoglobin 11.8 g/dL (11.5-15.4); Immature Granulocytes % 0.9 % (0-4); Lymphocytes # 0.7 K/mcL (0.6-4.6); Lymphocytes % 7.1 %; Mean Corpuscular HGB Conc 35.9 g/dL (31.6-35.5); Mean Corpuscular Hemoglobin 28.8 pg (28.0-33.3); Mean Corpuscular Volume 80.2 fL (83.0-100.0); Mean Platelet Volume 9.7 fL (9.4-12.4); Monocytes # 0.6 K/mcL (0.0-1.3); Monocytes % 5.9 %; Neutrophils # 8.9 K/mcL (1.6-8.9); Platelet Count 338 K/mcL (140-400)
[2016-06-18 21:07] LABS: ABG HCO3 24.5 mEQ/L (21-27); ABG PCO2 37 mmHg (35-45); ABG PH 7.43 pH Units (7.32-7.45); ABG PO2 183 mmHg (85-104)
[2016-06-18 21:08] LABS: ABG Base Excess 0.3 mEq/L (-2.0 to 3.0); ABG Oxygen Saturation 100 % (95-98); ABG TCO2 25.6 mEq/L (20-26); Blood Gas FiO2 50 %
[2016-06-18 21:11] LABS: Alanine Aminotransferase 62 Units/L (0-55); Albumin 3.5 g/dL (3.5-5.0); Alkaline Phosphatase 81 Units/L (38-126); Aspartate Amino Transferase 41 Units/L (5-34); BUN/Creatinine Ratio 21 (6-26); Blood Urea Nitrogen 15 mg/dL (7-20); Calcium 8.7 mg/dL (8.6-10.8); Carbon Dioxide 23 mEq/L (19-29); Chloride 85 mEq/L (98-109); Globulin 3.6 g/dL (2.4-3.5); Glucose 259 mg/dL (70-99); Osmolality,Calculated 260 (280-300); Potassium 3.3 mEq/L (3.5-4.5); Total Protein 7.1 g/dL (6.0-8.3); eGFR For African Americans > 60 (> 60); eGFR For Non-African Americans > 60 (> 60)
[2016-06-18 21:14] LABS: Sodium 120 mEq/L (136-145)
[2016-06-18] MEDS ORDERED: 0.9 % Sodium Chloride 1,000 ML IVC SCH (21:30)
--- NOTE | 2016-06-25 12:51 | Discharge Summary ---
Date of Encounter: 06/18/16 Time of Encounter: 12:48 - Discharge Diagnosis (1) CVA (cerebral vascular accident) Priority: Primary Status: Acute Comments: She was Sonnenfeld decompensating at risk and had complications of shortness of breath sudden wheezing agitation and she is to be transferred to the larger facility Qualifiers: CVA mechanism: unspecified Qualified Code(s): I63.9 - Cerebral infarction, unspecified - Discharge Medications Home Medications: Aspirin [Ecotrin] 325 mg PO DAILY 06/05/16 [History] Bisacodyl [Woman's Laxative] 5 mg PO DAILY 06/05/16 [History] Carvedilol [Coreg] 6.25 mg PO BID 06/05/16 [History] GlipiZIDE [Glipizide] 10 mg PO DAILY 06/05/16 [History] Insulin Glargine [Lantus] 32 units SQ DAILY 06/05/16 [History] Pravastatin Sodium [Pravachol] 40 mg PO HS 06/05/16 [History] Warfarin [Coumadin] 2.5 mg PO DAILY 06/05/16 [History] Amlodipine Besylate [Amlodipine Besylate] 10 mg PO DAILY 06/19/16 [History] Furosemide [Lasix] 20 mg PO AD PRN 06/19/16 [History] Insulin ASPART [Novolog Flexpen] 2 - 8 unit SQ TIDWM 06/19/16 [History] Levothyroxine [Synthroid] 100 mcg PO DAILY 06/19/16 [History] Allergies/Adverse Reactions: Allergies Penicillins Allergy (Verified 06/19/16 12:22) Rash Date of admission: 06/05/16 13:01 Primary care physician: PCP NO Consults: 06/05/16 13:16 Consult to Physical Therapy [CONS] Routine Comment: Evaluate, develop and implement POC OT [Consult to Occupational Therapy] [CONS] Routine Comment: Evaluate, develop and implement POC 06/05/16 13:17 Consult to Psychology [CONS] Routine Consulting Provider: Edda Muro Reason for Consult: cva Time Notified: 13:18 Call Completed: Yes Consult to Recreational Therapy [CONS] Routine Comment: 06/08/16 15:44 Consult to Psychology [CONS] Routine Consulting Provider: Edda Muro Reason for Consult: cva Time Notified: 16:00 Call Completed: No Discharging clinician: Luiz Lomeli Anticipated date of discharge: 06/18/16 - Patient Status Disposition: Transfer Short-Term Hosp Condition: Serious Functional capacity at discharge: independent ambulation Overall status at discharge: patient is not back to baseline - Discharge Instructions Follow Up With: NO,PCP [Primary Care Provider] - - Diet and Activity Activity: wear oxygen at all times Interval History: Patient initially was admitted for CVA for rehabilitation. She has had for last 48 hours working with therapists. This afternoon she had a session of shortness of breath wheezing diaphoresis agitation and I became concerned because I did not have a diagnosis to explain her behavior. PE was ruled out chest x-ray did show CHF UA was negative. Hospital course: Ms. Torres is a 81 year old female Because of the above-mentioned changes are called to transfer the patient to obtain a - Time Spent with Patient Total time spent providing and/or coordinating discharge services: Less than 30 minutes - Constitutional Vitals: Temp Pulse Resp BP Pulse Ox 98.2 F 100 18 202/76 100 06/18/16 20:12 06/18/16 20:12 06/18/16 20:12 06/18/16 20:12 06/18/16 20:12 General appearance: Present: A&O X 3, pleasant, no acute distress - Head Head exam: Present: atraumatic, normal inspection, normocephalic - Neck Neck exam general surgery: Present: supple, trachea midline. Absent: lymphadenopathy - Respiratory Respiratory exam: Present: CTAB. Absent: accessory muscle use, rales, rhonchi, wheezes - Cardiovascular Cardiovascular exam: Present: irregular rhythm, RRR, +S1, +S2. Absent: diastolic murmur, gallop, rubs, systolic murmur - Skin Skin exam: Present: diaphoretic, dry, intact - VTE Documentation of Mechanical Device: Graduated compression elastic hosiery
== END 2016-06-18 22:00 | disposition short-term general hospital (02) | DRG 57 ==
LOC: INPGRE 13:01
PROVIDERS: ADMIT Internal Medicine; ATTEND Internal Medicine